=== PATIENT | male | born 1960 | race Caucasian/White ===

== ENCOUNTER 2020-09-07 15:06 | Emergency (ER) | payer OTHER ==
[~2020-09-07] VITALS: Ht 180.3 cm; Wt 85.0 kg
[2020-09-07 15:15] VITALS: BP 136/96
--- NOTE | 2020-09-07 15:37 | ED.ADGEN ---
Past Medical History Past Medical History: CAD, Heart Disease, Hypertension Past Surgical History Percutaneous coronary angiography with stenting General Adult EDM: Chief Complaint: CHEST PAIN HPI: HPI: Patient is a 60-year-old male who arrives ambulatory to the emergency department complaining of flulike symptoms for the past 2 days. Patient describes substernal chest pain which has been ongoing now for 2 days which he states is related to coughing. Patient also reports he had chills during this time as well as a headache. Patient states he continues to have chest pain associated with coughing and describes his sensation is being sore. He states however that his chills and headache have since resolved. The patient denies being short of air. He further states that he has not been in contact with anyone who has had any exposure to coronavirus. He denies any nausea or known fevers. He is awake, alert and nontoxic-appearing. Review of Systems: Review of Systems: Constitutional: Reports chills. Denies fever. [] Eyes: Denies change in visual acuity. [] HENT: Denies nasal congestion or sore throat. [] Respiratory: Reports to cough and chest wall pain. Denies shortness of breath. [] Cardiovascular: Reports chest pain. Denies edema. [] GI: Denies abdominal pain, nausea, vomiting, bloody stools or diarrhea. [] : Denies dysuria. [] Musculoskeletal: Denies back pain or joint pain. [] Integument: Denies rash. [] Neurologic: Reports headache. Denies focal weakness or sensory changes. [] Endocrine: Denies polyuria or polydipsia. [] Lymphatic: Denies swollen glands. [] Psychiatric: Denies depression or anxiety. [] Allergies: Allergies: Allergies Coded Allergies Type Severity Reaction Last Updated Verified No Known Drug Allergies 09/07/20 No Physical Exam: PE: Constitutional: Well developed, well nourished, no acute distress, non-toxic appearance. [] HENT: Normocephalic, atraumatic, bilateral external ears normal, oropharynx moist, no oral exudates, nose normal. [] Eyes: PERRLA, EOMI, conjunctiva normal, no discharge. [] Neck: Normal range of motion, no tenderness, supple, no stridor. [] Cardiovascular:Heart rate regular rhythm, no murmur [] Lungs & Thorax: Bilateral breath sounds clear to auscultation [] Abdomen: Bowel sounds normal, soft, no tenderness, no masses, no pulsatile masses. [] Skin: Warm, dry, no erythema, no rash. [] Back: No tenderness, no CVA tenderness. [] Extremities: No tenderness, no cyanosis, no clubbing, ROM intact, no edema. [] Neurologic: Alert and oriented X 3, normal motor function, normal sensory function, no focal deficits noted. [] Psychologic: Affect normal, judgement normal, mood normal. [] Current Patient Data: Labs: Laboratory Tests Test 09/07/20 15:44 09/07/20 15:46 Sodium Level 143 mmol/L (136-145) Potassium Level 4.2 mmol/L (3.5-5.1) Chloride Level 107 mmol/L (98-107) Carbon Dioxide Level 29 mmol/L (21-32) Anion Gap 7 (6-14) Blood Urea Nitrogen 15 mg/dL (8-26) Creatinine 1.0 mg/dL (0.7-1.3) Estimated GFR (Cockcroft-Gault) 76.2 BUN/Creatinine Ratio 15 (6-20) Glucose Level 156 mg/dL (70-99) H Calcium Level 8.3 mg/dL (8.5-10.1) L Total Bilirubin 0.4 mg/dL (0.2-1.0) Aspartate Amino Transferase (AST) 26 U/L (15-37) Alanine Aminotransferase (ALT) 39 U/L (16-63) Alkaline Phosphatase 106 U/L (46-116) Troponin I Quantitative < 0.017 ng/mL (0.000-0.055) TG-Asf-B-Type Natriuretic Peptide 140 pg/mL (0-124) H Total Protein 7.2 g/dL (6.4-8.2) Albumin 3.0 g/dL (3.4-5.0) L Albumin/Globulin Ratio 0.7 (1.0-1.7) L White Blood Count 13.6 x10^3/uL (4.0-11.0) H Red Blood Count 4.67 x10^6/uL (4.30-5.70) Hemoglobin 15.0 g/dL (13.0-17.5) Hematocrit 43.6 % (39.0-53.0) Mean Corpuscular Volume 93 fL (79-100) Mean Corpuscular Hemoglobin 32 pg (25-35) Mean Corpuscular Hemoglobin Concent 34 g/dL (31-37) Red Cell Distribution Width 13.4 % (11.5-14.5) Platelet Count 356 x10^3/uL (140-400) Neutrophils (%) (Auto) 77 % (31-73) H Lymphocytes (%) (Auto) 15 % (24-48) L Monocytes (%) (Auto) 6 % (0-9) Eosinophils (%) (Auto) 2 % (0-3) Basophils (%) (Auto) 1 % (0-3) Neutrophils # (Auto) 10.5 x10^3/uL (1.8-7.7) H Lymphocytes # (Auto) 2.0 x10^3/uL (1.0-4.8) Monocytes # (Auto) 0.8 x10^3/uL (0.0-1.1) Eosinophils # (Auto) 0.3 x10^3/uL (0.0-0.7) Basophils # (Auto) 0.1 x10^3/uL (0.0-0.2) Laboratory Tests 09/07/20 15:46 Laboratory Tests 09/07/20 15:44 Vital Signs: Vital Signs Date Time Temp Pulse Resp B/P (MAP) Pulse Ox O2 Delivery O2 Flow Rate FiO2 09/07/20 15:15 97.7 97 22 136/96 (109) 98 Room Air 97.7 EKG: EKG: EKG was obtained at 1512 hrs. and revealed what appears to be a sinus rhythm versus a supraventricular rhythm with a ventricular rate of 102 bpm. There are premature ventricular contractions along with right axis deviation. There are no acute ST/T wave changes denoting acute ischemia.. [] Heart Score: HEART Score for Chest Pain: HEART Score for Chest Pain Response (Comments) Value History Moderately Suspicious 1 ECG Nonspecific Repolarizatio 1 Age >45 - < 65 1 Risk Factors 1 or 2 Risk Factors 1 Troponin < Normal Limit 0 Total 4 Risk Factors: Risk Factors: DM, Current or recent (<one month) smoker, HTN, HLP, family history of CAD, obesity. Risk Scores: Score 0 - 3: 2.5% MACE over next 6 weeks - Discharge Home Score 4 - 6: 20.3% MACE over next 6 weeks - Admit for Clinical Observation Score 7 - 10: 72.7% MACE over next 6 weeks - Early Invasive Strategies Radiology/Procedures: Radiology/Procedures: [] Impression: [facility] [address] [place] [address] IMAGING REPORT Signed PATIENT: GLEN MONTGOMERY DACCOUNT: [id number] : 1960 LOCATION: ER AGE: 60 SEX: M EXAM STATUS: REG ER ORD. PHYSICIAN: CONCETTA BARRERA DO REASON: Chest pain PROCEDURE: PORTABLE CHEST 1V XR CHEST 1V History: Reason: Chest pain / Spl. Instructions: / History: Comparison: None. Technique: Portable AP chest radiograph. Findings: The right lung is adequately inflated. The left lung is hypoinflated with elevation of the left hemidiaphragm. Left basilar opacity. Cardiac silhouette is partially obscured. No pleural effusion or pneumothorax. Osseous structures and soft tissues are unremarkable. Impression: 1. Elevation of the left hemidiaphragm with left basilar opacities which may represent atelectasis, however infection cannot be excluded. Alternatively this may represent new cardiomegaly with complete obscuration of the left hemidiaphragm however this is felt less likely. Recommend upright PA and lateral chest radiographs for further evaluation. Electronically signed by: Jonnathan Jaeger MD (09/07/2020 4:01 PM) [facility] DICTATED and SIGNED BY: JONNATHAN JAEGER MD DATE: 09/07/20 [id number] 0 Course & Med Decision Making: Course & Med Decision Making Pertinent Labs and Imaging studies reviewed. (See chart for details). The patient remains awake, alert and in no acute distress. Specifically he does not have any shortness of air nor does he have any chest pain now. I do believe the patient's chest pain may be related to his ongoing coughing. And I have concerns that he may be positive for coronavirus. Nonetheless I placed the patient on antibiotics given his chest x-ray which may be consistent with pneumonia. Should the patient develop sustained chest pain or new shortness of air I advised that he return immediately to the emergency department. The patient understands and has agreed to do so. He should otherwise quarantine until his coronavirus results have returned. Patient understands and has agreed to do so as well. He is nontoxic-appearing and stable for discharge. [] Sophie Disclaimer: Sophie Disclaimer: This electronic medical record was generated, in whole or in part, using a voice recognition dictation system. Departure Departure Impression: Primary Impression: Pneumonia Additional Impressions: Person under investigation for COVID-19 Atypical chest pain Disposition: 01 DC HOME SELF CARE/HOMELESS Condition: GOOD Referrals: MILES GALINDO MD (PCP) Patient Instructions: Chest Pain (Nonspecific), Pneumonia, Adult Scripts Benzonatate (BENZONATATE) 200 Mg Capsule 1 CAP PO PRN TID PRN for cough for 7 Days, #21 CAP 0 Refills Prov: CONCETTA BARRERA DO 09/07/20 Levofloxacin (LEVOFLOXACIN) 750 Mg Tablet 1 TAB PO DAILY, #7 TAB Prov: CONCETTA BARRERA DO 09/07/20 Albuterol Sulfate (PROAIR HFA INHALER) 8.5 Gm Hfa.aer.ad 2 PUFF IH PRN Q4-6HRS PRN for wheezing for 21 Days, #1 INHALER 0 Refills Prov: CONCETTA BARRERA DO 09/07/20 Problem Qualifiers CONCETTA BARRERA DO Sep 07, 2020 15:37
[2020-09-07 15:57] LABS: BASO # 0.1 x10^3/uL (0.0-0.2); BASO % 1 % (0-3); EOS # 0.3 x10^3/uL (0.0-0.7); EOS % 2 % (0-3); HEMATOCRIT 43.6 % (39.0-53.0); LYMPH % 15 % (24-48); MEAN CORPUSCULAR HEMOGLOBIN 32 pg (25-35); MEAN CORPUSCULAR HGB CONC 34 g/dL (31-37); MEAN CORPUSCULAR VOLUME 93 fL (79-100); MONO # 0.8 x10^3/uL (0.0-1.1); MONO % 6 % (0-9); NEUT # 10.5 x10^3/uL (1.8-7.7); NEUT % 77 % (31-73); PLATELET COUNT 356 x10^3/uL (140-400); RED BLOOD COUNT 4.67 x10^6/uL (4.30-5.70); RED CELL DISTRIBUTION WIDTH 13.4 % (11.5-14.5); WHITE BLOOD COUNT 13.6 x10^3/uL (4.0-11.0)
--- NOTE | 2020-09-07 16:04 | RAD ---
XR CHEST 1V History: Reason: Chest pain / Spl. Instructions: / History: Comparison: None. Technique: Portable AP chest radiograph. Findings: The right lung is adequately inflated. The left lung is hypoinflated with elevation of the left hemid iaphragm. Left basilar opacity. Cardiac silhouette is partially obscured. No pleural effusion or pneu mothorax. Osseous structures and soft tissues are unremarkable. Impression: 1. Elevation of the left hemidiaphragm with left basilar opacities which may represent atelectasis, however infection cannot be excluded. Alternatively this may represent new cardiomegaly with complete obscuration of the left hemidiaphragm however this is felt less likely. Recommend upright PA and lat eral chest radiographs for further evaluation. Electronically signed by: Jonnathan Durbin MD (09/07/2020 4:01 PM) [facility]
[2020-09-07 16:15] LABS: CALCIUM 8.3 mg/dL (8.5-10.1); GFR 76.2; POTASSIUM 4.2 mmol/L (3.5-5.1)
[2020-09-07 16:20] LABS: ALBUMIN/GLOBULIN RATIO 0.7 (1.0-1.7); TOTAL BILIRUBIN 0.4 mg/dL (0.2-1.0); TOTAL PROTEIN 7.2 g/dL (6.4-8.2)
[2020-09-07] MEDS ORDERED: LEVO750T5 PO (16:40)
[2020-09-07] MEDS ORDERED: BENZ200C47 PO (16:40)
[2020-09-07] MEDS ORDERED: ALBU2.5V8 IH (16:40)
== END 2020-09-07 17:00 | disposition home or self-care (01) ==
LOC: ER 15:06
DX: J18.9 Pneumonia, unspecified organism (principal); Z20.822 Contact with and (suspected) exposure to COVID-19; R07.2 Precordial pain; I11.9 Hypertensive heart disease without heart failure; I25.10 Atherosclerotic heart disease of native coronary artery without angina pectoris
CPT/HCPCS: 36415; 71045; 80053; 83880; 84484; 85025; 87040; 93005; 99285; C9803; U0003

== ENCOUNTER 2020-10-24 17:47 | Emergency (ER) | payer OTHER ==
[~2020-10-24] VITALS: Ht 182.9 cm; Wt 80.0 kg
[~2020-10-24 17:47] MED LIST: ALBU2.5V8 IH; BENZ200C47 PO; LEVO750T5 PO
[2020-10-24] MEDS ORDERED: KETOROLAC 30 MG/ML VIAL. IVP ONE (18:15)
[2020-10-24] MEDS ORDERED: IV NORMAL SALINE 1000ML BAG 1,000 ML IV SCH (18:15)
--- NOTE | 2020-10-24 18:21 | PHYS DOC ---
Past Medical History Past Medical History: Heart Disease, Hypertension Additional Past Medical Histor: SPONTANEOUS PNEUMOTHORAX Past Surgical History: Other Additional Past Surgical Histo: cardiac stents X2 Smoking Status: Current Every Day Smoker Alcohol Use: Rarely Adult General Chief Complaint Chief Complaint: ABDOMINAL PAIN [facility] HPI Patient is a 60-year-old male who presents with acute onset left-sided back pain that wraps around to his groin. Reports that he has been peeing blood for the past 2 days and approximately 1 hour prior to presentation started having inten se back pain that radiated to his groin and some suprapubic pain. He reports that he has not pain like this in the past and reports no history of kidney stones or previous abdominal surgeries. Reports some cardiovascular history stating that in the past he has had a heart attack and has had some stents placed. Patient is a poor historian due to acute pain Review of Systems Review of Systems Fourteen body systems of review of systems have been reviewed. See HPI for pertinent positives and negative responses, other jamison all other systems are negative, non-pertinent or non-contributory Current Medications Current Medications Current Medications Medications (Trade) Dose Ordered Sig/Adelina Start Time Stop Time Status Last Admin Dose Admin Fentanyl Citrate (Fentanyl 2ml Vial) 50 mcg 1X ONCE 10/24/20 19:30 10/24/20 19:31 DC 10/24/20 19:37 50 MCG Ketorolac Tromethamine (Toradol 30mg Vial) 30 mg 1X ONCE 10/24/20 18:15 10/24/20 18:16 DC 10/24/20 18:21 30 MG Ondansetron HCl (Zofran) 4 mg 1X ONCE 10/24/20 18:30 10/24/20 18:31 DC 10/24/20 18:28 4 MG Sodium Chloride 1,000 ml @ 1,000 mls/hr Q1H 10/24/20 18:15 10/24/20 19:14 DC 10/24/20 18:18 1,000 MLS/HR Allergies Allergies Allergies Coded Allergies Type Severity Reaction Last Updated Verified No Known Drug Allergies 09/07/20 No Physical Exam Physical Exam Constitutional: Well developed, well nourished, acutely distressed due to abdominal pain, tearful HENT: Normocephalic, atraumatic, bilateral external ears normal, oropharynx moist, no oral exudates, nose normal. Eyes: PERRLA, EOMI, conjunctiva normal, no discharge. Neck: Normal range of motion, no tenderness, supple, no stridor. Cardiovascular: Heart rate regular, sinus rhythm, no murmurs rubs or gallops Lungs & Thorax: No respiratory distress, no increased work of breathing or accessory muscle use. Bibasilar crackles present on auscultation Abdomen: Bowel sounds normal, soft, generalized abdominal tenderness with guarding present, no rebound, no masses, no pulsatile masses. Nonsurgical abdomen, no peritoneal signs Skin: Warm, dry, no erythema, no rash. Back: No tenderness, left CVA tenderness. Extremities: No tenderness, no cyanosis, no clubbing, ROM intact, no edema. Neurologic: Alert and oriented X 3, grossly normal motor & sensory function, no focal deficits noted. Psychologic: Tearful affect depressed mood Current Patient Data Vital Signs Vital Signs Date Time Temp Pulse Resp B/P (MAP) Pulse Ox O2 Delivery O2 Flow Rate FiO2 10/24/20 17:53 97.8 110 32 139/104 (116) 98 Room Air 97.8 Lab Values Laboratory Tests Test 10/24/20 17:58 10/24/20 18:06 White Blood Count 10.8 x10^3/uL (4.0-11.0) Red Blood Count 4.65 x10^6/uL (4.30-5.70) Hemoglobin 15.0 g/dL (13.0-17.5) Hematocrit 42.9 % (39.0-53.0) Mean Corpuscular Volume 92 fL (79-100) Mean Corpuscular Hemoglobin 32 pg (25-35) Mean Corpuscular Hemoglobin Concent 35 g/dL (31-37) Red Cell Distribution Width 13.1 % (11.5-14.5) Platelet Count 374 x10^3/uL (140-400) Neutrophils (%) (Auto) 59 % (31-73) Lymphocytes (%) (Auto) 27 % (24-48) Monocytes (%) (Auto) 9 % (0-9) Eosinophils (%) (Auto) 3 % (0-3) Basophils (%) (Auto) 1 % (0-3) Neutrophils # (Auto) 6.4 x10^3/uL (1.8-7.7) Lymphocytes # (Auto) 2.9 x10^3/uL (1.0-4.8) Monocytes # (Auto) 1.0 x10^3/uL (0.0-1.1) Eosinophils # (Auto) 0.3 x10^3/uL (0.0-0.7) Basophils # (Auto) 0.1 x10^3/uL (0.0-0.2) Sodium Level 143 mmol/L (136-145) Potassium Level 4.1 mmol/L (3.5-5.1) Chloride Level 106 mmol/L (98-107) Carbon Dioxide Level 28 mmol/L (21-32) Anion Gap 9 (6-14) Blood Urea Nitrogen 18 mg/dL (8-26) Creatinine 1.2 mg/dL (0.7-1.3) Estimated GFR (Cockcroft-Gault) 61.8 BUN/Creatinine Ratio 15 (6-20) Glucose Level 89 mg/dL (70-99) Lactic Acid Level 1.6 mmol/L (0.4-2.0) Calcium Level 9.3 mg/dL (8.5-10.1) Total Bilirubin 0.3 mg/dL (0.2-1.0) Aspartate Amino Transferase (AST) 27 U/L (15-37) Alanine Aminotransferase (ALT) 41 U/L (16-63) Alkaline Phosphatase 96 U/L (46-116) Troponin I Quantitative < 0.017 ng/mL (0.000-0.055) Total Protein 7.4 g/dL (6.4-8.2) Albumin 3.6 g/dL (3.4-5.0) Albumin/Globulin Ratio 0.9 (1.0-1.7) L Lipase 126 U/L (73-393) Urine Collection Type Void Urine Color Maggie Urine Clarity Clear Urine pH 5.5 (<5.0-8.0) Urine Specific [place] 1.025 (1.000-1.030) Urine Protein 100 mg/dL (NEG-TRACE) Urine Glucose (UA) 250 mg/dL (NEG) Urine Ketones (Stick) Negative mg/dL (NEG) Urine Blood Large (NEG) Urine Nitrite Negative (NEG) Urine Bilirubin Negative (NEG) Urine Urobilinogen Dipstick 1.0 mg/dL (0.2 mg/dL) Urine Leukocyte Esterase Trace (NEG) Urine RBC Tntc /HPF (0-2) Urine WBC 5-10 /HPF (0-4) Urine Squamous Epithelial Cells Few /LPF Urine Bacteria Moderate /HPF (0-FEW) Urine Mucus Mod /LPF Laboratory Tests 10/24/20 17:58 Laboratory Tests 10/24/20 17:58 EKG EKG EKG ordered and interpreted by myself 1846 hrs. sinus rhythm at 89 bpm, unremarkable intervals, no axis deviation, no acute ischemic findings, no STEMI Radiology/Procedures Radiology/Procedures EXAM: Chest, single view. HISTORY: Tachycardia. COMPARISON: 09/07/2020 FINDINGS: A frontal view of the chest is obtained. There is no infiltrate, pleural effusion or pneumothorax. The heart is normal in size. There is stable linear atelectasis or scarring within the left lower lobe. IMPRESSION: No acute pulmonary finding. Electronically signed by: Shannon Harris MD (10/24/2020 6:46 PM) [facility] ////////////////// Examination: CT of the abdomen pelvis without contrast HISTORY: History of left flank pain COMPARISON: None available Technique: Axial CT images of the abdomen pelvis were performed without contrast. Coronal and sagittal reformats are performed Exposure: One or more of the following individualized dose reduction techniques were utilized for this examination: 1. Automated exposure control 2. Adjustment of the mA and/or kV according to patient size 3. Use of iterative reconstruction technique FINDINGS: Emphysematous changes identified in the the partially visualized bilateral lungs. Mild bibasilar lung atelectasis or infiltrates. No evidence of free air identified in the abdomen . Examination limited due to lack of IV contrast. The visualized noncontrasted liver, spleen, adrenals grossly appears unremarkable. The gallbladder is mildly distended. The stomach is mildly distended with visualized pancreas grossly appears unremarkable. The small bowel is nondilated. Feces and gas noted. The appendix is normal The 3 mm calculus identified in the left kidney. Mild left-sided hydronephrosis and hydroureter identified with 5 mm calculus identified in the distal left ureter just proximal to the left uterovesical junction Mild fat stranding identified about the left kidney. Moderate degenerative changes lumbar spine. IMPRESSION: 1. 5 mm calculus identified in the distal left ureter just proximal to the left uterovesical junction causing mild left-sided hydronephrosis and hydroureter. 2. 3 mm calculus identified in the left kidney. 3. Mild bibasilar lung atelectasis or infiltrates. Electronically signed by: Renato Reyes MD (10/24/2020 7:20 PM) [id number] Course & Med Decision Making Course & Med Decision Making Afebrile, tachycardic and tachypneic on arrival. HPI and physical examination consistent with likely kidney stone versus other Dragon Disclaimer Dragon Disclaimer This electronic medical record was generated, in whole or in part, using a voice recognition dictation system. Departure Departure Impression: Primary Impression: Kidney stone on left side Disposition: [address] [place] [address] ([facility]) Admitting Physician: ANA PAULA (dr dawn) Condition: STABLE Referrals: MILES GALINDO MD (PCP) LANCE ISIDRO DO Oct 24, 2020 18:21
[2020-10-24 18:25] LABS: BASO # 0.1 x10^3/uL (0.0-0.2); BASO % 1 % (0-3); EOS # 0.3 x10^3/uL (0.0-0.7); EOS % 3 % (0-3); HEMATOCRIT 42.9 % (39.0-53.0); LYMPH # 2.9 x10^3/uL (1.0-4.8); LYMPH % 27 % (24-48); MEAN CORPUSCULAR HEMOGLOBIN 32 pg (25-35); MEAN CORPUSCULAR HGB CONC 35 g/dL (31-37); MEAN CORPUSCULAR VOLUME 92 fL (79-100); MONO % 9 % (0-9); NEUT # 6.4 x10^3/uL (1.8-7.7); NEUT % 59 % (31-73); PLATELET COUNT 374 x10^3/uL (140-400); RED BLOOD COUNT 4.65 x10^6/uL (4.30-5.70); RED CELL DISTRIBUTION WIDTH 13.1 % (11.5-14.5); WHITE BLOOD COUNT 10.8 x10^3/uL (4.0-11.0)
[2020-10-24 18:29] LABS: BILIRUBIN,URINE NEGATIVE (NEG); CLARITY,URINE CLEAR; COLOR,URINE AMBER; NITRITE,URINE NEGATIVE (NEG); PH,URINE 5.5 (<5.0-8.0); PROTEIN,URINE 100 mg/dL (NEG-TRACE)
[2020-10-24] MEDS ORDERED: ONDANSETRON PF 4 MG/2 ML VIAL. IVP ONE (18:30)
[2020-10-24 18:35] LABS: CALCIUM 9.3 mg/dL (8.5-10.1); CREATININE 1.2 mg/dL (0.7-1.3); GFR 61.8; POTASSIUM 4.1 mmol/L (3.5-5.1)
[2020-10-24 18:40] LABS: ALBUMIN 3.6 g/dL (3.4-5.0); ALBUMIN/GLOBULIN RATIO 0.9 (1.0-1.7); TOTAL BILIRUBIN 0.3 mg/dL (0.2-1.0); TOTAL PROTEIN 7.4 g/dL (6.4-8.2)
--- NOTE | 2020-10-24 18:48 | RAD ---
EXAM: Chest, single view. HISTORY: Tachycardia. COMPARISON: 09/07/2020 FINDINGS: A frontal view of the chest is obtained. There is no infiltrate, pleural effusion or pneumo thorax. The heart is normal in size. There is stable linear atelectasis or scarring within the left l ower lobe. IMPRESSION: No acute pulmonary finding. Electronically signed by: Shannon Harris MD (10/24/2020 6:46 PM) [facility]
[2020-10-24 18:52] LABS: BACTERIA,URINE MODERATE /HPF (0-FEW); RBC,URINE TNTC /HPF (0-2)
--- NOTE | 2020-10-24 19:22 | RAD ---
Examination: CT of the abdomen pelvis without contrast HISTORY: History of left flank pain COMPARISON: None available Technique: Axial CT images of the abdomen pelvis were performed without contrast. Coronal and sagitta l reformats are performed Exposure: One or more of the following individualized dose reduction techniques were utilized for thi s examination: 1. Automated exposure control 2. Adjustment of the mA and/or kV according to patient size 3. Use of iterative reconstruction technique FINDINGS: Emphysematous changes identified in the the partially visualized bilateral lungs. Mild bibasilar lung atelectasis or infiltrates. No evidence of free air identified in the abdomen . Examination limited due to lack of IV contrast. The visualized noncontrasted liver, spleen, adrenals grossly appears unre markable. The gallbladder is mildly distended. The stomach is mildly distended with visualized pancre as grossly appears unremarkable. The small bowel is nondilated. Feces and gas noted. The appendix is normal The 3 mm calculus identified in the left kidney. Mild left-sided hydronephrosis and hydroureter ident ified with 5 mm calculus identified in the distal left ureter just proximal to the left uterovesical junction Mild fat stranding identified about the left kidney. Moderate degenerative changes lumbar spine. IMPRESSION: 1. 5 mm calculus identified in the distal left ureter just proximal to the left uterovesical junctio n causing mild left-sided hydronephrosis and hydroureter. 2. 3 mm calculus identified in the left kidney. 3. Mild bibasilar lung atelectasis or infiltrates. Electronically signed by: Renato Reyes MD (10/24/2020 7:20 PM) [id number]
[2020-10-24] MEDS ORDERED: fentaNYL PF VIAL 100 MCG/2 ML VIAL IVP ONE (19:30)
--- NOTE | 2020-10-24 20:19 | EKG ---
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
[2020-10-24] MEDS ORDERED: TAMSULOSIN 0.4 MG CAP.ER.24H. PO ONE (21:30)
[2020-10-24 22:09] VITALS: BP 164/95
== END 2020-10-24 22:30 | disposition short-term general hospital (02) ==
LOC: ER 17:47
DX: N20.0 Calculus of kidney (principal); I11.9 Hypertensive heart disease without heart failure; F17.200 Nicotine dependence, unspecified, uncomplicated; Z95.5 Presence of coronary angioplasty implant and graft
CPT/HCPCS: 36415; 71045; 74176; 80053; 81001; 83605; 83690; 84484; 85025; 87086; 93005; 96361; 96374; 96375; 99285; J1885; J2405; J3010; J7030